=== PATIENT | male | born 1940 | race African-American/Black ===

== ENCOUNTER 2017-07-01 18:19 | Emergency (ER) | payer MEDICARE, OTHER ==
[2017-07-01 18:39] VITALS: BP 174/113
--- NOTE | 2017-07-01 20:42 | ER Document Report ---
ED Fall - General Mode of Arrival: Medic Information source: Patient TRAVEL OUTSIDE OF THE [place] IN LAST 30 DAYS: No - General Chief Complaint: Fall Stated Complaint: FALL 24 HOURS AGO Time Seen by Provider: 07/01/17 18:51 Notes: Patient is a 77-year-old male who presents to the emergency department today secondary to a fall that occurred last night. Patient lives in a half-way. Patient states he remembers the fall and knows that he did not hit his head. Patient denies any pain whatsoever. Patient's only complaint is that he is hungry. Patient states he wishes to go back home after eating. Patient denies any neck pain, head pain, chest pain, shortness breath, or syncope. (ADRIEN OLIVEIRA) - Related data Allergies/Adverse Reactions: aspirin Allergy (Verified 07/01/17 18:40) Past Medical History - General Information source: Patient, [facility] Records - Social History Smoking Status: Never Smoker Cigarette use (# per day): No Chew tobacco use (# tins/day): No Frequency of alcohol use: None Drug Abuse: None Lives with: Family Family History: Reviewed & Not Pertinent Patient has suicidal ideation: No Patient has homicidal ideation: No - Past Medical History Cardiac Medical History: Reports: Hx Hypertension Endocrine Medical History: Reports: Hx Diabetes Mellitus Type 2 Surgical Hx: Negative - Immunizations Hx Diphtheria, Pertussis, Tetanus Vaccination: Yes Review of Systems - Review of Systems Constitutional: No symptoms reported EENT: No symptoms reported Cardiovascular: No symptoms reported Respiratory: No symptoms reported Gastrointestinal: No symptoms reported Genitourinary: No symptoms reported Male Genitourinary: No symptoms reported Musculoskeletal: No symptoms reported Skin: No symptoms reported Hematologic/Lymphatic: No symptoms reported Neurological/Psychological: No symptoms reported -: Yes All other systems reviewed and negative Physical Exam - Vital signs Vitals: Temp Pulse Resp BP Pulse Ox 98.4 F 91 16 174/113 H 97 07/01/17 18:25 07/01/17 18:25 07/01/17 18:25 07/01/17 18:25 07/01/17 18:25 - Notes Notes: Physical Exam: General: Alert, appears well. HEENT: Normocephalic. Atraumatic. PERRL. Extraocular movements intact. Oropharynx clear. Neck: Supple. Non-tender. Respiratory: No respiratory distress. Clear and equal breath sounds bilaterally. Cardiovascular: Regular rate and rhythm. Abdominal: Normal Inspection. Non-tender. No distension. Normal Bowel Sounds. Back: Non-tender. No deformity or step off. Extremities: Moves all four extremities. Upper extremities: Normal inspection. Normal ROM. Lower extremities: 2+ pitting edema bilaterally. 4/5 strength in bilateral lower extremities at baseline. Neurological: Normal cognition. AAOx4. Normal speech. Psychological: Normal affect. Normal Mood. Skin: Warm. Dry. Normal color. (ADRIEN OLIVEIRA) Course - Re-evaluation Re-evalutation: Patient apparently fell yesterday at his residence. Patient has no complaints. Patient states that he always has leg swelling. Patient is no new complaints today. States that he would like to go back to his place of living. Patient will be given a meal and discharge as requested. Stable at time of discharge. No injuries found on exam. (NATASHA PEREZ) - Vital Signs Vital signs: Temp Pulse Resp BP Pulse Ox 98.4 F 91 16 174/113 H 97 07/01/17 18:25 07/01/17 18:25 07/01/17 18:25 07/01/17 18:25 07/01/17 18:25 Discharge - Discharge Clinical Impression: Adult general medical exam Fall Qualifiers: Encounter type: initial encounter Qualified Code(s): W19.XXXA - Unspecified fall, initial encounter Condition: Stable Disposition: HOME, SELF-CARE Additional Instructions: Please follow-up with your doctor this week. Scribe Attestation: 07/02/17 00:02 I personally performed the services described in the documentation, reviewed and edited the documentation which was dictated to the scribe in my presence, and it accurately records my words and actions. (NATASHA PEREZ) Scribe Documentation - Scribe Written by Kasi:: Kasi Pratt, 07/01/2017 [id number] acting as scribe for :: Kortney
== END 2017-07-02 15:10 | disposition home or self-care (01) ==
LOC: ER 18:19
DX: Z04.3 Encounter for examination and observation following other accident (principal); W19.XXXA Unspecified fall, initial encounter; Y92.129 Unspecified place in nursing home as the place of occurrence of the external cause; R60.0 Localized edema; I10 Essential (primary) hypertension; E11.9 Type 2 diabetes mellitus without complications; Z88.6 Allergy status to analgesic agent
CPT/HCPCS: 99284